=== PATIENT | female | born 1995 | race Caucasian/White ===

== ENCOUNTER → 2016-09-11 | Day surgery (SDC) | payer OTHER ==
[2016-09-10 13:47] VITALS: Ht 167.6 cm; Wt 48.2 kg
[~2016-09-11] VITALS: Ht 167.6 cm; Wt 48.2 kg
[~2016-09-11] MED LIST: AMT/8 PO; BCPILLS PO; ESCI10TA17 PO; LIDOCAINE HCL 2% 2 ML VIAL (20MG/ML) ONE; PROPOFOL IV EMULSION 10 MG/ML 20 ML VIAL IV ONE; SODIUM CHLORIDE 0.9% 500ML 500 ML IV ONE; [UNRECOGNIZED DRUG - CODE] PO
[2016-09-11 12:10] VITALS: TEMP 37
--- NOTE | 2016-09-11 12:52 | Endo History and Physical ---
History & Physical Date of Service: September 11, 2016. Chief Complaint: nausea,abdominal pain,constipation Referring Physician: Dr.Mary Shelton History of Present Illness 21 yo CF who presents for EGD secondary to nausea, abdominal pain and constipation. Past Surgical History Hx Cardiac Surgery: No Hx Internal Defibrillator: No Hx Pacemaker: No Hx Abdominal Surgery: No Hx of Implantable Prosthesis: No Hx Post-Op Nausea and Vomiting: No Hx Cancer Surgery: No Hx Thoracic Surgery: No Hx Orthopedic: No Hx Urinary Tract Surgery: No Family History Polyp, IBD Social History Smoking Status: Never Smoker Hx Substance Use: No Hx Alcohol Use: No Allergies Coded Allergies: No Known Allergies (Verified , 09/11/16) Current Medications Reported Home Medications Medications Dose Route/Sig Max Daily Dose Days Date Category Amitiza (Lubiprostone) 8 Mcg Cap 2 Cap PO BID 09/10/16 Reported Cabergoline 0.5 Mg Tab 1 Tab PO 2XWK 09/10/16 Reported Lexapro (Escitalopram Oxalate) 10 Mg Tab 10 Mg PO QAM 09/10/15 Reported Control Pills (Miscellaneous) Tab 1 Tab PO QAM 08/26/15 Reported Vital Signs Weight (Kilograms): 48.18 Height (Feet): 5 Height (Inches): 6 Date Time Temp Pulse Resp B/P Pulse Ox O2 Delivery O2 Flow Rate FiO2 09/11/16 12:10 37 78 16 110/68 98 Room Air Physical Exam General Appearance: WD/WN, no apparent distress Respiratory/Chest: Auscultation: breath sounds normal Cardiovascular: Heart Auscultation: RRR Abdomen: Bowel Sounds: normal Inspection & Palpation: soft, non-distended, no tenderness, guarding & rebound Assessment and Plan Assessment: 21 yo CF who presents for EGD secondary to nausea, abdominal pain and constipation. Plan: Proceed with EGD.
--- NOTE | 2016-09-11 12:53 | Discharge Instructions ---
Endoscopy Patient Instructions Date / Procedure(s) Performed September 11, 2016. EGD Allergy Information Coded Allergies: No Known Allergies (Verified , 09/11/16) Discharge Date / Findings September 11, 2016. Duodenal biopsies Gastritis s/p biopsies Esophagitis s/p biopsies Medication Instructions OK to resume all medications today as prescribed Reported Home Medications Medications Dose Route/Sig Max Daily Dose Days Date Category Amitiza (Lubiprostone) 8 Mcg Cap 2 Cap PO BID 09/10/16 Reported Cabergoline 0.5 Mg Tab 1 Tab PO 2XWK 09/10/16 Reported Lexapro (Escitalopram Oxalate) 10 Mg Tab 10 Mg PO QAM 09/10/15 Reported Control Pills (Miscellaneous) Tab 1 Tab PO QAM 08/26/15 Reported Provider Instructions Activity Restrictions - No exercising or heavy lifting for 24 hours. - Do not drink alcohol the day of the procedure. - Do not drive a car or operate machinery until the day after the procedure. - Do not make any important decisions or sign important papers in 24 hours after the procedure. Following Day: - Return to full activity which may include returning to work/school. Diet Start your diet with liquids and light foods (jello, soup, juice, toast). Then eat your usual diet if not nauseated. Treatment For Common After Affects For mild abdominal pain, bloating, or excessive gas: - Rest - Eat lightly - Lie on right side Follow-Up Information Follow-up with Dr.Mary Shelton as scheduled Anesthesia Information What You Should Know You have had a procedure that required some medicine to reduce anxiety and discomfort. This treatment is called moderate sedation. After receiving the treatment, you may be sleepy, but you will be able to breathe on your own. The effects of the treatment may last for several hours. Follow these instructions along with Activity/Diet recommendations noted above: * Do NOT do anything where dizziness or clumsiness would be dangerous. * Rest quietly at home today, then you can be up and about tomorrow. * Have a responsible person stay with you the rest of today. * You may have had an I.V. today. If so, you may take the dressing off later today. Recommendations Call your doctor if: * Trouble breathing * Continuous vomiting for more than 24 hours * Temperature above 101 degrees * Severe abdominal pain or bloating * Pain not relieved by pain medicine ordered * There is increased drainage or redness from any incision * A large amount of rectal bleeding greater than 2-3 tablespoons. (If you had a polyp/s removed or have hemorrhoids, a small amount of blood - from the rectum is to be expected.) * You have any unanswered questions or concerns. IN THE EVENT OF A SERIOUS EMERGENCY, GO TO THE NEAREST EMERGENCY ROOM Your discharge instructions were prepared by provider Avinash Durand. Patient Instructions Signature Page Triny Marin Patient (or Guardian) Signature/Date: I have read and understand the instructions given to me by my caregivers. Caregiver/RN/Doctor Signature/Date: The above-named patient and/or guardian has received patient instructions on this date. + Original Patient Signature Page (only) stays with chart. Please make copy for patient.
[2016-09-11 13:26] VITALS: BP 101/51; PULSE 85; O2SAT 97
--- NOTE | 2016-09-11 13:31 | Anesthesiology Progress Note ---
Anesthesia Post Op Note Date & Time September 11, 2016 at 13:31 Vital Signs Pain Intensity: 0 Vital Signs Past 12 Hours Date Time Temp Pulse Resp B/P Pulse Ox O2 Delivery O2 Flow Rate FiO2 09/11/16 13:26 85 18 101/51 97 Room Air 09/11/16 13:11 73 16 88/50 96 Room Air 09/11/16 12:57 93 20 98/41 93 Room Air 09/11/16 12:10 37 78 16 110/68 98 Room Air Notes Mental Status: alert / awake / arousable, participated in evaluation Pt Amnestic to Procedure: Yes Nausea / Vomiting: adequately controlled Pain: adequately controlled Airway Patency, RR, SpO2: stable & adequate BP & HR: stable & adequate Hydration State: stable & adequate Anesthetic Complications: no major complications apparent
--- NOTE | 2016-09-11 14:53 | GI REPORT ---
Procedure Date: 09/11/2016 12:40 PM Procedure: Upper GI endoscopy Indications: Epigastric abdominal pain, Nausea Medicines: Monitored Anesthesia Care Complications: No immediate complications. Estimated Blood Loss: Estimated blood loss: none. Procedure: Pre-Anesthesia Assessment: - Prior to the procedure, a History and Physical was performed, and patient medications and allergies were reviewed. The patient's tolerance of previous anesthesia was also reviewed. The risks and benefits of the procedure and the sedation options and risks were discussed with the patient. All questions were answered, and informed consent was obtained. Prior Anticoagulants: The patient has taken no previous anticoagulant or antiplatelet agents. ASA Grade Assessment: II - A patient with mild systemic disease. After reviewing the risks and benefits, the patient was deemed in satisfactory condition to undergo the procedure. After obtaining informed consent, the endoscope was passed under direct vision. Throughout the procedure, the patient's blood pressure, pulse, and oxygen saturations were monitored continuously. The scope was introduced through the mouth, and advanced to the second part of duodenum. The upper GI endoscopy was accomplished without difficulty. The patient tolerated the procedure well. Findings: Mildly severe esophagitis with no bleeding was found. Biopsies were taken with a cold forceps for histology. Localized mild inflammation characterized by erythema was found in the gastric antrum. Biopsies were taken with a cold forceps for histology. The examined duodenum was normal. Biopsies were taken with a cold forceps for histology. Impression: - Mildly severe reflux esophagitis. Biopsied. - Gastritis. Biopsied. - Normal examined duodenum. Biopsied. Recommendation: - Resume previous diet. - Continue present medications. - Await pathology results. - Return to GI office as previously scheduled. Avinash Durand DO 09/11/2016 2:53:17 PM This report has been signed electronically. Note Initiated On: 09/11/2016 12:40 PM I attest to the content of the Intraoperative Record and orders documented therein, exceptions below
== END | disposition home or self-care (01) ==
LOC: C.GI 11:49
PROVIDERS: ATTEND Internal Medicine
DX: K21.0 Gastro-esophageal reflux disease with esophagitis (principal); K29.70 Gastritis, unspecified, without bleeding; Z83.71 Family history of colonic polyps; Z83.79 Family history of other diseases of the digestive system; Z79.899 Other long term (current) drug therapy

== ENCOUNTER → 2017-01-19 | Outpatient (CLI) | payer BC ==
[~2017-01-19] MED LIST changes: -LIDOCAINE HCL 2% 2 ML VIAL (20MG/ML) ONE; -PROPOFOL IV EMULSION 10 MG/ML 20 ML VIAL IV ONE; -SODIUM CHLORIDE 0.9% 500ML 500 ML IV ONE
--- NOTE | 2017-01-19 10:16 | DIAGNOSTIC IMAGING REPORT ---
(BARIUM SWALLOW) ESOPHAGUS CLINICAL HISTORY: 21 years-old Female with R10.10, K58.1, R29.2,R11.10. Acute dysphasia. TECHNIQUE: Barium contrast and effervescent crystals were administered to the patient under fluoroscopic examination. Barium tablet was also administered. Multiple images were obtained and submitted for review. FLUOROSCOPY TIME: 1.9 minutes COMPARISON: Acute abdominal series radiographs 08/26/2015. FINDINGS: During deglutition, contrast material flowed freely through the cervical esophagus. No filling defect or mucosal abnormality is identified. No abnormal stricturing or mass effect is seen. The mid to distal esophagus is well coated and distended. No abnormal stricturing or mucosal abnormality is identified. No significant reflux or hiatal hernia was demonstrated during the exam. The GE junction is normal in appearance. A barium tablet was administered which demonstrated decreased transit the region of the mid thoracic esophagus just superior to the level the cait as seen on image 27 of 27. Impression: 1. Decreased transit of barium tablet, notably at the level of the mid thoracic esophagus without associated stricturing or other focal abnormality of the esophagus identified. These findings could be further evaluated with chest CT to exclude extrinsic mass effect such as a vascular sling or ring. 2. Otherwise unremarkable study. The above report was generated using voice recognition software. It may contain grammatical, syntax or spelling errors. Electronically signed by: Vimal Block M.D. 01/19/2017 10:14 AM Dictated Date/Time: 01/19/2017 10:12 AM
== END | disposition home or self-care (01) ==
LOC: C.RAD 08:54
PROVIDERS: ATTEND Family Medicine
DX: R10.10 Upper abdominal pain, unspecified (principal); K58.1 Irritable bowel syndrome with constipation; R29.2 Abnormal reflex; R11.10 Vomiting, unspecified

== ENCOUNTER → 2017-01-27 | Outpatient (CLI) | payer BC ==
[~2017-01-27] MED LIST changes: +OPTIRAY 320 IV PRN
--- NOTE | 2017-01-27 16:26 | DIAGNOSTIC IMAGING REPORT ---
CT OF THE CHEST WITH IV CONTRAST CLINICAL HISTORY: Upper abdominal pain, reflux, vomiting and gagging. COMPARISON STUDY: Chest radiograph August 26, 2015 and barium swallow January 19, 2017. TECHNIQUE: Following IV administration of 120 mL of [id number]-[id number], helical axial images of the chest were obtained. Sagittal and coronal reconstructions were viewed as well as maximal intensity projections on an independent 3-D workstation. A dose lowering technique was utilized adhering to the principles of ALARA. CT DOSE: 200.91 mGy.cm FINDINGS: No enlarged axillary, mediastinal or hilar lymph nodes are present. The size of the heart is normal. There is no pericardial effusion. No congenital anomaly is identified to account for the finding on prior barium swallow January 19, 2017. The central airways are patent. No pneumomediastinum is present. No consolidation is identified. No pneumothorax or pleural effusion is noted. The bony thorax and upper abdomen are unremarkable. IMPRESSION: Unremarkable chest CT. No abnormality to account for the finding on barium swallow of January 19, 2017. Electronically signed by: Maicol Glover M.D. 01/27/2017 4:24 PM Dictated Date/Time: 01/27/2017 4:14 PM
== END | disposition home or self-care (01) ==
LOC: C.CTS 15:59
PROVIDERS: ATTEND Physician Assistant
DX: R29.2 Abnormal reflex (principal); R11.10 Vomiting, unspecified; K22.4 Dyskinesia of esophagus; R10.10 Upper abdominal pain, unspecified